=== PATIENT | male | born 1960 | race Caucasian/White ===

== ENCOUNTER → 2020-04-30 11:30 | Outpatient (CLI) | payer BC, SELFPAY ==
--- NOTE | ~2020-04-30 | CT_ITS ---
EXAMINATION:CT lung screening DATE: 04/30/2020 11:44 INDICATION: Personal history of tobacco dependence. Current smoker with 30 pack year history. TECHNIQUE: Computed tomography (CT) of the chest was performed without intravenous contrast. Automate d exposure control and iterative reconstruction technique were employed. The dose-length product (DLP ) was 132.15 mGy-cm. COMPARISON: None. FINDINGS: The lungs demonstrate minimal atelectasis. There is a staple line in left lower lobe. Calci fied left lung nodules and calcified left hilar lymph nodes are consistent with old granulomatous dis ease. There is a 5 mm nodule right major fissure. There is a 4 mm nodule in left major fissure. No pl eural effusion. The heart size is normal. No pericardial effusion. There is mild thoracic spondylosis . IMPRESSION: 1. Lung-RADS category 2: Benign appearance or behavior. Continue annual screening with noncontrast lo w-dose chest CT in 12 months. Reviewed, dictated and finalized at location A. 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 Lung-RADS category 2: Benign appearance or behavior. Continue annual screeni ng with noncontrast low-dose chest CT in 12 months.
== END ==
PROVIDERS: PCP Family Medicine; Visit Provider Family Medicine
DX: Z12.2 Encounter for screening for malignant neoplasm of respiratory organs (principal); Z87.891 Personal history of nicotine dependence
CPT/HCPCS: 71271

== ENCOUNTER 2020-05-05 08:03 | Outpatient (CLI) | payer BC, SELFPAY | END 2020-05-05 08:04 | disposition home or self-care (01) | LOC: ANHCOVIDVC 08:04 | PROVIDERS: PCP Family Medicine | DX: Z23 Encounter for immunization (principal) | CPT/HCPCS: 0001A; 91300 ==

== ENCOUNTER 2020-05-26 07:59 | Outpatient (CLI) | payer BC, SELFPAY | END 2020-05-26 08:00 | disposition home or self-care (01) | LOC: ANHCOVIDVC 07:59 | PROVIDERS: PCP Family Medicine | DX: Z23 Encounter for immunization (principal) | CPT/HCPCS: 0002A; 91300 ==

== ENCOUNTER 2020-06-05 06:46 | Outpatient (CLI) | payer BC, SELFPAY ==
--- NOTE | ~2020-06-05 | CT_ITS ---
EXAMINATION: CT soft tissue neck w con DATE: 06/05/2020 07:16 INDICATION: Polyp on vocal cord and larynx. TECHNIQUE: Computed tomography (CT) of the neck was performed with 75 mL Omnipaque-350 intravenous co ntrast. Automated exposure control and iterative reconstruction technique were employed. The dose-magdaleno gth product was 539.19 mGy-cm. COMPARISON: Chest CT 04/30/2020 FINDINGS: There are calcifications in right palatine tonsil. The larynx is unremarkable. There are no pathologically enlarged lymph nodes. There is plaque in the proximal internal carotid arteries with 0% stenosis relative to normal distal artery lumen diameters. There is mucosal thickening in the para nasal sinuses. The mastoid air cells are normal. There is moderate cervical spondylosis. IMPRESSION: 1. Unremarkable larynx. No lymphadenopathy. Reviewed, dictated and finalized at location A.
== END 2020-06-05 06:47 | disposition home or self-care (01) ==
LOC: ANHIMG 06:49
PROVIDERS: PCP Family Medicine; Visit Provider Otolaryngology
DX: J38.1 Polyp of vocal cord and larynx (principal); J38.7 Other diseases of larynx; R49.0 Dysphonia
CPT/HCPCS: 70491; Q9967

== ENCOUNTER 2022-04-18 18:25 | Emergency (ER) | payer SELFPAY ==
--- NOTE | 2022-04-18 18:42 | ED.SKABFB ---
HPI - Skin/Abscess/Foreign Bdy General Chief complaint: Skin/Abscess/Foreign Body Stated complaint: infected spot on lower back Time Seen by Provider: 04/18/22 18:50 Source: patient and RN notes reviewed Mode of arrival: ambulatory Limitations: no limitations History of Present Illness HPI narrative: 61-year-old male presents concern for abscess on his right buttock. He reports that started about a week and half ago was a pimple and has progressively gotten larger, more painful. Today he noticed it had some drainage. Reports his recently had something similar that was diagnosed as MRSA. He reports today he felt some mild malaise, denies fever, aches, chills, sweats. complaint: abscess/boil Related Data Home Medications Medication Instructions Recorded Confirmed multivitamin (Multiple Vitamins 1 tablet PO DAILY 02/06/19 04/18/22 tablet) naproxen sodium 220 mg capsule 220 mg PO ONCE 02/06/19 04/18/22 (Aleve) Allergies Allergy/AdvReac Type Severity Reaction Status Date / Time No Known Allergies Allergy Verified 04/18/22 18:43 Review of Systems Review of Systems: CONSTITUTIONAL: Denies malaise, chills, sweats, or fever. EYES: Denies redness, or discharge. ENT: Denies rhinorrhea, congestion, swollen lips, swollen tongue CARDIOVASCULAR: Denies chest pain, palpitations, or edema. RESPIRATORY: Denies cough or dyspnea. GASTROINTESTINAL: Denies abdominal pain, nausea, vomiting SKIN: Reports red, swollen, tender area with clear drainage to the right buttock. Denies purulent drainage, vesicles, bullae, numbness, pain beyond proportion MUSCULOSKELETAL: Denies joint pain or myalgia. NEUROLOGIC: Denies headache. All systems reviewed & are unremarkable except as noted in HPI and below PMFSH Past Medical History Medical History (Updated 04/18/22 @ 19:29 by Yuliet Samson NP) Impingement syndrome, shoulder Surgical History Surgical History History of lumbar surgery 1999- History of total hip arthroplasty Bilateral 1999-Dr. Esquivel S/P revision of total hip 2014-Dr. Glass Family History Family History Mother Hypertension Social History Social History Smoking packs per day: 1 Smoking cigarettes per day: 20.0 Years smoked: 41 Smoking pack-years: 41.00 Smoking status: Current every day smoker Tobacco type: cigarettes Alcohol intake: current Alcohol use details: Occasional Living arrangements: with family Additional living arrangements comments: Occupation/Education: occupation Additional occupation/education comments: [employer] Gender identity (if verbalized by the patient): Male Comments At time of signature, agree with nursing past medical, surgical, social and family history. There is no relevant family history pertinent to the presenting complaint Exam Narrative: GENERAL: Well-appearing, well-nourished, and in no acute distress. HEAD: Normocephalic, atraumatic. EYES: PERRLA, conjunctivae clear ENT: Mucous membranes moist. NECK: Supple. No lymphadenopathy CHEST: Clear to auscultation. No respiratory distress. HEART: Regular rate and rhythm. SKIN: Warm, dry. Raised area of erythema, induration, tenderness, warmth with sharp margins with central dark colored scab a small amount of purulent drainage noted to the right buttock; erythematous area is 4 cm in diameter deep palpated indurated area is 7 cm in diameter. No vesicles, bullae, necrosis, ecchymosis, crepitus noted. NEURO: Alert and oriented x3. PSYCH: Normal mood and affect Course Course Emergency Course: Patient is aware of diagnosis, understands and agrees to treatment plan. Anticipatory guidance given. Patient agrees to follow-up as directed and is aware of reasons to seek care at the emergency department. Portions
[2022-04-18 18:45] VITALS: BP 128/77; PULSE 77; RESP 16; TEMP 36.6; O2SAT 100
[2022-04-18] MEDS: LIDOCAINE HCL 1% LOCAL INJ 2 ML AMPUL 4 ML INFILTRATE (19:43)
== END 2022-04-18 19:34 | disposition home or self-care (01) ==
PROVIDERS: Emergency Provider Nurse Practitioner; PCP Family Medicine
DX: L02.31 Cutaneous abscess of buttock (principal); F17.210 Nicotine dependence, cigarettes, uncomplicated
CPT/HCPCS: 10060; 87070; 87075; 87147; 87186; 87205; 99213; G0463

== ENCOUNTER 2022-05-27 18:04 | Emergency (ER) | payer OTHER, SELFPAY ==
[2022-05-27 18:16] VITALS: BP 132/79; PULSE 81; RESP 16; TEMP 36.4; O2SAT 98
--- NOTE | 2022-05-27 18:19 | ED.SKABFB ---
HPI - Skin/Abscess/Foreign Bdy General Chief complaint: Skin/Abscess/Foreign Body Stated complaint: SPOT ON NECK Time Seen by Provider: 05/27/22 18:15 Source: patient, RN notes reviewed and old records reviewed Mode of arrival: ambulatory Limitations: no limitations History of Present Illness HPI narrative: 61-year-old male who presents to [facility] with complaints of abscess to his right neck area which has been there for the past 2 days. Abscess area is 1cm in diameter with some purulent drainage noted. patient reports that his and himself squeezed on area and small amount of purulent drainage noted. Patient had previous abscess to right buttock area in March and had to be drained and took a while to heal, his doctor told him not to let anything get that bad again, patient reports he called his doctor today and they ordered him an antibiotic but was concerned to not have it opened up to see if anymore drainage would come out. Patient denies any acute pain to area,denies any fevers, chills or sweats. MD complaint: abscess/boil (to right posterior neck) Onset (ago): day(s) (2) Treatments prior to arrival: attempted to drain pus at home Related Data Home Medications Medication Instructions Recorded Confirmed multivitamin (Multiple Vitamins 1 tablet PO DAILY 02/06/19 05/27/22 tablet) naproxen sodium 220 mg capsule 220 mg PO ONCE 02/06/19 05/27/22 (Aleve) varenicline 1 mg tablet 1 mg PO DAILY 05/27/22 05/27/22 Allergies Allergy/AdvReac Type Severity Reaction Status Date / Time No Known Allergies Allergy Verified 05/27/22 18:12 Review of Systems Review of Systems: CONSTITUTIONAL: Denies fever, chills, or sweats. CARDIOVASCULAR: Denies chest pain, palpitations, or edema. RESPIRATORY: Denies cough or dyspnea. GASTROINTESTINAL: Denies abdominal pain, nausea, vomiting SKIN: Reports redness and swelling. 1cm diameter red raised abscess to right neck with some purulent drainage, no vesicles,no pain beyond proportion MUSCULOSKELETAL: Denies myalgia. NEUROLOGIC: Denies headache, numbness All systems reviewed & are unremarkable except as noted in HPI and below PMFSH Past Medical History Medical History Impingement syndrome, shoulder Surgical History Surgical History History of lumbar surgery 1999- History of total hip arthroplasty Bilateral 1999-Dr. Esquivel S/P revision of total hip 2014-Dr. Glass Family History Family History Mother Hypertension Social History Social History Social History: Caffeine-coffee daily Smoking packs per day: 0.5 Smoking cigarettes per day: 10.0 Years smoked: 41 Smoking pack-years: 20.50 Smoking status: Current every day smoker Tobacco type: cigarettes Alcohol intake: current Alcohol use details: Occasional Lack of Transportation: No Lack of Food: Never True Current Housing: I Have Housing Concerned About Future Housing: No Difficulty Paying Gas/Electric Bills: No Difficulty Paying for Meds: No Currently Unemployed: No Education: High School Diploma/GED Difficulty w/ Childcare or Family Care: No Living arrangements: with family Additional living arrangements comments: Occupation/Education: occupation Additional occupation/education comments: [employer] Gender identity (if verbalized by the patient): Male Comments At time of signature, agree with nursing past medical, surgical, social and family history. There is no relevant family history pertinent to the presenting complaint Exam Narrative: GENERAL: Well-appearing, well-nourished, and in no acute distress. HEAD: Normocephalic, atraumatic. EYES: PERRLA and EOMI. ENT: Nares clear, no rhinorrhea or epistaxis. Mucous membran
[2022-05-27] MEDS: LIDOCAINE HCL 1% LOCAL INJ 2 ML AMPUL INFILTRATE (18:26)
== END 2022-05-27 18:50 | disposition home or self-care (01) ==
PROVIDERS: Emergency Provider Registered Nurse; PCP Family Medicine
DX: L02.11 Cutaneous abscess of neck (principal); F17.210 Nicotine dependence, cigarettes, uncomplicated
CPT/HCPCS: 10060; 99213; G0463

== ENCOUNTER 2022-08-17 18:26 | Emergency (ER) | payer OTHER, SELFPAY ==
[2022-08-17 18:34] VITALS: BP 122/75; PULSE 76; RESP 16; TEMP 36.7; O2SAT 98
--- NOTE | 2022-08-17 18:34 | ED.SKABFB ---
HPI - Skin/Abscess/Foreign Bdy General Chief complaint: Skin/Abscess/Foreign Body Stated complaint: INFECTION ON BACK OF R LEG Time Seen by Provider: 08/17/22 18:37 Source: patient and RN notes reviewed Mode of arrival: ambulatory Limitations: no limitations History of Present Illness HPI narrative: 61-year-old male presents with concern for an infection on the back of his right leg. Reports he noticed several days ago a small painful area, it has gotten larger over the last several days and when he takes a hot shower it drains. He denies any general malaise, chills, sweats. This is his 3rd similar infection dysuria this year. MD complaint: abscess/boil Related Data Home Medications Medication Instructions Recorded Confirmed multivitamin (Multiple Vitamins 1 tablet PO DAILY 02/06/19 08/17/22 tablet) naproxen sodium 220 mg capsule 220 mg PO ONCE 02/06/19 08/17/22 (Aleve) varenicline 1 mg tablet 1 mg PO DAILY 05/27/22 08/17/22 Allergies Allergy/AdvReac Type Severity Reaction Status Date / Time No Known Allergies Allergy Verified 05/27/22 18:12 Review of Systems Review of Systems: CONSTITUTIONAL: Denies malaise, chills, sweats, or fever. EYES: Denies redness, or discharge. ENT: Denies rhinorrhea, congestion, swollen lips, swollen tongue CARDIOVASCULAR: Denies chest pain, palpitations, or edema. RESPIRATORY: Denies cough or dyspnea. GASTROINTESTINAL: Denies abdominal pain, nausea, vomiting SKIN: Reports red raised painful area on the back of his right leg MUSCULOSKELETAL: Denies joint pain or myalgia. NEUROLOGIC: Denies headache. All systems reviewed & are unremarkable except as noted in HPI and below PMFSH Past Medical History Medical History Impingement syndrome, shoulder Surgical History Surgical History History of lumbar surgery 1999- History of total hip arthroplasty Bilateral 1999-Dr. Esquivel S/P revision of total hip 2014-Dr. Glass Family History Family History Mother Hypertension Social History Social History (Reviewed 05/02/22 @ 13:56 by EMERSON Miles Social History: Caffeine-coffee daily Smoking packs per day: 0.5 Smoking cigarettes per day: 10.0 Years smoked: 41 Smoking pack-years: 20.50 Smoking status: Current every day smoker Tobacco type: cigarettes Alcohol intake: current Alcohol use details: Occasional Lack of Transportation: No Lack of Food: Never True Current Housing: I Have Housing Concerned About Future Housing: No Difficulty Paying Gas/Electric Bills: No Difficulty Paying for Meds: No Currently Unemployed: No Education: High School Diploma/GED Difficulty w/ Childcare or Family Care: No Living arrangements: with family Additional living arrangements comments: Occupation/Education: occupation Additional occupation/education comments: [employer] Gender identity (if verbalized by the patient): Male Comments At time of signature, agree with nursing past medical, surgical, social and family history. There is no relevant family history pertinent to the presenting complaint Exam Narrative: GENERAL: Well-appearing, well-nourished, and in no acute distress. HEAD: Normocephalic, atraumatic. EYES: PERRLA, conjunctivae clear, and EOMI. ENT: Mucous membranes moist. Oropharynx without edema, erythema or lesions. NECK: Supple. No lymphadenopathy CHEST: Clear to auscultation. No respiratory distress. HEART: Regular rate and rhythm. SKIN: Warm, dry. Approximately he 7 cm x 5 cm raised firm erythematous warm area noted to the back of the right leg without surrounding erythema, edema, induration. No fluctuation noted NEURO: Alert and oriented x3. PSYCH: Normal mood and affect Course Course Emergency Course: Jakob
[2022-08-17 18:35] VITALS: BP 122/75; PULSE 76; RESP 16; TEMP 36.7; O2SAT 98
== END 2022-08-17 18:58 | disposition home or self-care (01) ==
PROVIDERS: Emergency Provider Nurse Practitioner; PCP Family Medicine
DX: L02.425 Furuncle of right lower limb (principal); F17.210 Nicotine dependence, cigarettes, uncomplicated
CPT/HCPCS: 99213; G0463

== ENCOUNTER → 2022-09-26 15:38 | Outpatient (CLI) | payer OTHER, SELFPAY ==
--- NOTE | ~2022-09-26 | CT_ITS ---
EXAMINATION:CT lung screening DATE: 09/26/2022 15:52 INDICATION: Personal history of nicotine dependence. Current smoker with 60 pack year history. TECHNIQUE: Computed tomography (CT) of the chest was performed without intravenous contrast. Automate d exposure control and iterative reconstruction technique were employed. The dose-length product (DLP ) was 134.14 mGy-cm. COMPARISON: Chest CT 04/30/2020 FINDINGS: The lungs demonstrate mild atelectasis. There are changes of wedge resection in left lower lobe. Again seen are 5 mm and 3 mm nodules at left major fissure. Calcified left hilar and mediastina l lymph nodes are consistent with old granulomatous disease. No pleural effusion. The heart size is n ormal. No pericardial effusion. There is moderate lower thoracic spondylosis. IMPRESSION: 1. Lung-RADS category 2: Benign appearance or behavior. Continue annual screening with noncontrast lo w-dose chest CT in 12 months. Reviewed, dictated and finalized at location A. IMPRESSION: 1. Lung-RADS category 2: Benign appearance or behavior. Continue annual screeni ng with noncontrast low-dose chest CT in 12 months.
== END ==
PROVIDERS: PCP Family Medicine; Visit Provider Physician Assistant
DX: Z12.2 Encounter for screening for malignant neoplasm of respiratory organs (principal); Z87.891 Personal history of nicotine dependence
CPT/HCPCS: 71271

== ENCOUNTER 2023-11-02 15:40 | Outpatient (CLI) | payer OTHER, SELFPAY ==
--- NOTE | ~2023-11-02 | CT_ITS ---
EXAMINATION: CT lung screening DATE: 11/02/2023 15:50 INDICATION: annual lung screening, hx nicotine dependence TECHNIQUE: Computed tomography (CT) of the chest was performed without intravenous contrast. Addition al 3D reconstructions utilizing coronal maximum intensity projection (MIP) were performed. Automated exposure control and iterative reconstruction technique were employed. The dose-length product was 99 .10 mGy-cm. COMPARISON: 09/26/2022 FINDINGS: Again seen are postoperative change of a prior left lower lobe pulmonary wedge resection with suture line and scarring at the posterior sulcus. Mild discoid atelectasis at the posterior right lower lobe and at the inferior lingula. Again seen are a couple small left intrafissural lymph nodes which now appear calcified along with calcified subcarinal lymph nodes consistent with old granulomatous diseas e. No other noncalcified pulmonary nodules, pneumonia, pulmonary edema or pleural effusion. Heart siz e is normal. No pericardial effusion. Thoracic aorta is normal in caliber. No pathologically enlarged thoracic lymphadenopathy. Moderate spondylosis at T11-T12 and T12-L1. Otherwise normal thoracic spon dylosis. IMPRESSION: 1. Lung-RADS category 1: Negative. Continue annual screening with noncontrast low-dose chest CT in 12 months. Reviewed, dictated and finalized at location A. IMPRESSION: 1. Lung-RADS category 1: Negative. Continue annual screening with noncontrast l ow-dose chest CT in 12 months.
== END 2023-11-02 15:41 | disposition home or self-care (01) ==
LOC: GOSHIMG 15:41
PROVIDERS: PCP Family Medicine; Visit Provider Nurse Practitioner Family
DX: Z12.2 Encounter for screening for malignant neoplasm of respiratory organs (principal); F17.210 Nicotine dependence, cigarettes, uncomplicated
CPT/HCPCS: 71271

== ENCOUNTER 2024-11-04 08:20 | Outpatient (CLI) | payer OTHER, SELFPAY ==
--- NOTE | ~2024-11-04 | CT_ITS ---
EXAMINATION:CT lung screening DATE: 11/04/2024 08:39 INDICATION: Nicotine dependence, cigarettes, uncomplicated. TECHNIQUE: Computed tomography (CT) of the chest was performed without intravenous contrast. Automated exposure control and iterative reconstruction technique were employed. The dose-length product (DLP) was 113.09 mGy-cm. COMPARISON: Chest CT 11/02/2023 FINDINGS: There are changes of wedge resection in left lung lower lobe. Calcified left lung nodules and calcified left hilar lymph nodes are consistent with old granulomatous disease. No pleural effusion. The heart size is normal. No pericardial effusion. There is moderate thoracic spondylosis. IMPRESSION: 1. Lung-RADS category 1: Negative. Continue annual screening with noncontrast low-dose chest CT in 12 months. Reviewed, dictated and finalized at location E. IMPRESSION: 1. Lung-RADS category 1: Negative. Continue annual screening with noncontrast l ow-dose chest CT in 12 months.
== END 2024-11-04 08:21 | disposition home or self-care (01) ==
LOC: MICIMG 08:21
PROVIDERS: PCP Family Medicine; Visit Provider Nurse Practitioner Family
DX: Z12.2 Encounter for screening for malignant neoplasm of respiratory organs (principal); F17.210 Nicotine dependence, cigarettes, uncomplicated
CPT/HCPCS: 71271